=== PATIENT | female | born 1955 | race Caucasian/White ===

== ENCOUNTER 2018-08-24 07:48 | Outpatient (CLI) | payer MEDICARE, OTHER ==
--- NOTE | 2018-08-24 10:11 | CT ---
CT CHEST WITH IV CONTRAST: Date: 08-24-18 Provided Clinical History: Breast cancer, chest pain. FINDINGS: No comparisons. Increased density involves the left main coronary artery likely reflecting stent material. The heart, pericardium and great vessels appear otherwise unremarkable. There is no evidence for thoracic lymph node enlargement. The airway appears patent and is normal caliber. The lungs are free of significant opacity. No pleural fluid, pleural thickening or pneumothorax appar ent. There is a simple appearing cyst involving the inferior aspect of the right hepatic lobe. Smaller hyp odensities involve the liver and each kidney, too small to definitively characterize but likely also reflecting cysts. The visualized portions of the upper abdomen appear otherwise unremarkable. Post-operative changes are seen involving the left breast and surgical clips are seen in the left axi lla. The osseous structures demonstrate no concerning lytic or blastic lesions. IMPRESSION: No evidence for an acute process. POS: [facility]
[2018-08-24] MEDS ORDERED: ISOVUE-370 76%-LOCM 1 ML ONE (13:42)
[2018-08-24] MEDS ORDERED: Gadobenate Dimeglumine 529 MG/1 ML (20ML VIAL) ONE (13:50)
--- NOTE | 2018-08-24 15:05 | MRI ---
[facility] brain with and without contrast: (5th cranial nerve protocol) 08/24/2018 HISTORY: 63-year-old female with breast cancer presents with left facial pain and jaw pain. FINDINGS: There is no abnormal enhancement or mass involving the cisternal segments of the bilateral trigeminal nerves. Cavernous sinuses are bilaterally symmetrical and normal. Meckel's caves are normal. No evid ence of perineural spread of tumor at the pterygopalatine fossa, orbital apices, orbits, or infraorbi eduardo canals. Bilateral globes are normal. There are a few punctate scattered foci of minimal chronic i schemic white matter changes and cerebral. No other intra-axial signal abnormality, restricted diffus ion, abnormal enhancement, mass, mass effect, midline shift, or extra-axial fluid collection. A sligh tly less than 1 cm CSF signal intensity structure inferior to the left basal ganglia is a dilated Vir orourke-Jesus space, and should not be mistaken for an old lacunar infarction. Ventricles are normal in size and configuration. Clivus and the rest of the skull base demonstrate no destructive metastatic l esion. IMPRESSION: Negative
--- NOTE | 2018-08-24 15:08 | MRI ---
FCT face with and without contrast: 08/24/2018 HISTORY: 63-year-old female with breast cancer presents with facial pain. Evaluate paranasal sinuses. FINDINGS: There are signal voids throughout the maxillary, sphenoid, ethmoid, and frontal, sinuses, on all puls e sequences. (Disclaimer: Certain states of inspissated mucus within paranasal sinuses can result in complete signal voids on one or more pulse sequences, and therefore noncontrast CT of the sinuses wou ld be more definitive). There is no abnormal enhancement or mucosal thickening identified in any of t he paranasal sinuses. IMPRESSION: Negative
== END 2018-08-24 07:49 | disposition home or self-care (01) ==
LOC: BICCT 07:48
PROVIDERS: ATTEND Internal Medicine Hematology & Oncology
DX: G50.1 Atypical facial pain (principal); R68.84 Jaw pain; C50.919 Malignant neoplasm of unspecified site of unspecified female breast
CPT/HCPCS: 70543; 70553; 71260; 74160; 82565; A9577; Q9966

== ENCOUNTER 2019-03-29 09:29 | Outpatient (CLI) | payer MEDICARE ==
--- NOTE | 2019-03-29 10:25 | MMO ---
Bilateral MAMMO Bilat Screen [facility]. CLINICAL HISTORY: Patient is 63 years old and is seen for screening. The patient has no family history of breast cancer. The patient has a history of malignant (generic) in the left breast in May,. The patient has a history of left Lumpectomy in June, - malignant. VIEWS: The views performed were: bilateral craniocaudal with tomosynthesis and bilateral mediolateral oblique with tomosynthesis. FILMS COMPARED: The present examination has been compared to a prior imaging study performed at [facility] on 03/02/2018. This study has been interpreted with the assistance of computer-aided detection. MAMMOGRAM FINDINGS: There are scattered fibroglandular densities. There are stable post operative changes seen in the left breast. There are no suspicious masses, calcifications or areas of architectural distortion. There are no suspicious masses, suspicious calcifications, or new areas of architectural distortion. IMPRESSION: THERE IS NO MAMMOGRAPHIC EVIDENCE OF MALIGNANCY. A ROUTINE FOLLOW-UP MAMMOGRAM IN 1 YEAR IS RECOMMENDED. THE RESULTS OF THIS EXAM WERE SENT TO THE PATIENT. ACR BI-RADS Category 2 - Benign finding MAMMOGRAPHY NOTE: 1. A negative mammogram report should not delay a biopsy if a dominant of clinically suspicious mass is present. 2. Approximately 10% to 15% of breast cancers are not detected by mammography. 3. Adenosis and dense breasts may obscure an underlying neoplasm. Reported by: ROME DAVIS MD Electonically Signed: [id number]
== END 2019-03-29 09:30 | disposition home or self-care (01) ==
LOC: BICMAMMO 09:29 → MERGE 10:15
PROVIDERS: ATTEND Internal Medicine Hematology & Oncology
DX: Z12.31 Encounter for screening mammogram for malignant neoplasm of breast (principal); Z85.3 Personal history of malignant neoplasm of breast; Z98.890 Other specified postprocedural states
CPT/HCPCS: 77063; 77067

== ENCOUNTER 2020-03-14 10:03 | Outpatient (CLI) | payer MEDICARE ==
--- NOTE | 2020-03-14 10:54 | MMO ---
Bilateral MAMMO Bilat Screen [facility]. CLINICAL HISTORY: Patient is 64 years old and is seen for screening. The patient has no family history of breast cancer. The patient has a history of malignant (generic) in the left breast in May,. The patient has a history of left Lumpectomy in June, - malignant. VIEWS: The views performed were: bilateral craniocaudal with tomosynthesis and bilateral mediolateral oblique with tomosynthesis. FILMS COMPARED: The present examination has been compared to prior imaging studies performed at [facility] on 03/02/2018 and 03/29/2019, and at [facility] on 03/10/2017. This study has been interpreted with the assistance of computer-aided detection. MAMMOGRAM FINDINGS: There are scattered fibroglandular densities. Finding 1: There are stable post operative changes seen in the left breast. Finding 2: There are stable benign appearing calcifications seen in the left breast. There are no suspicious masses, suspicious calcifications, or new areas of architectural distortion. IMPRESSION: THERE IS NO MAMMOGRAPHIC EVIDENCE OF MALIGNANCY. A ROUTINE FOLLOW-UP MAMMOGRAM IN 1 YEAR IS RECOMMENDED. THE RESULTS OF THIS EXAM WERE SENT TO THE PATIENT. ACR BI-RADS Category 2 - Benign finding MAMMOGRAPHY NOTE: 1. A negative mammogram report should not delay a biopsy if a dominant of clinically suspicious mass is present. 2. Approximately 10% to 15% of breast cancers are not detected by mammography. 3. Adenosis and dense breasts may obscure an underlying neoplasm. Reported by: ELIS SHERIFF MD Electonically Signed: [id number]
== END 2020-03-14 10:04 | disposition home or self-care (01) ==
LOC: BICMAMMO 10:03
PROVIDERS: ATTEND Internal Medicine Hematology & Oncology
DX: Z12.31 Encounter for screening mammogram for malignant neoplasm of breast (principal); Z85.3 Personal history of malignant neoplasm of breast; Z98.890 Other specified postprocedural states
CPT/HCPCS: 77063; 77067

== ENCOUNTER 2021-03-19 11:23 | Outpatient (CLI) | payer MEDICARE | END 2021-03-19 11:24 | disposition home or self-care (01) | LOC: BICMAMMO 11:23 | PROVIDERS: ATTEND Internal Medicine Hematology & Oncology | DX: Z12.31 Encounter for screening mammogram for malignant neoplasm of breast (principal); Z85.3 Personal history of malignant neoplasm of breast; Z98.890 Other specified postprocedural states | CPT/HCPCS: 77063; 77067 ==

== ENCOUNTER 2021-05-02 09:38 | Outpatient (CLI) | payer MEDICARE | END 2021-05-02 09:39 | disposition home or self-care (01) | LOC: BICMAMMO 09:38 | PROVIDERS: ATTEND Internal Medicine Hematology & Oncology | DX: N64.89 Other specified disorders of breast (principal) | CPT/HCPCS: 76642; 77065; G0279 ==

== ENCOUNTER 2022-06-25 10:44 | Outpatient (CLI) | payer MEDICARE | END 2022-06-25 10:45 | disposition home or self-care (01) | LOC: BICMAMMO 10:44 | PROVIDERS: ATTEND Internal Medicine Hematology & Oncology | DX: Z12.31 Encounter for screening mammogram for malignant neoplasm of breast (principal); Z98.890 Other specified postprocedural states; Z85.3 Personal history of malignant neoplasm of breast | CPT/HCPCS: 77063; 77067 ==

== ENCOUNTER 2022-08-25 22:12 | Inpatient (IN) | payer MEDICARE ==
[2022-08-25] MEDS ORDERED: Heparin 25,000 units/D5W 500 ML ONE (22:37)
[2022-08-25 23:38] LABS: INR-International Normal Ratio 1.1; Prothrombin Time 14.2 sec (12.0-14.7)
[2022-08-25 23:43] LABS: PTT 125.7 sec (22.9-36.1)
[2022-08-26] MEDS ORDERED: Nitroglycerin 0.4 MG TAB (25 Tab Bottle) SL PRN (00:12)
[2022-08-26] MEDS ORDERED: Heparin 10,000 UNITS/ 10 ML VIAL SLOW IVP SCH (00:30)
[2022-08-26] MEDS ORDERED: Heparin 25,000 units/D5W 500 ML IVPB SCH (00:30)
[2022-08-26 01:24] LABS: Hemoglobin 12.4 g/dL (12.0-16.0); Platelet Count 185 10x3/uL (130-400)
[2022-08-26 01:48] LABS: Troponin I 0.032 ng/mL (< 0.028)
[2022-08-26 04:09] VITALS: BMI 28.3
[2022-08-26 05:41] LABS: Troponin I 0.033 ng/mL (< 0.028)
[2022-08-26] MEDS ORDERED: FLU VACC QS2022-23(65YR UP)/PF 240 MCG/0.7 ML SYRINGE IM ONE (09:00)
[2022-08-26] MEDS: Sertraline 100 MG TAB PO SCH (09:55)
[2022-08-26] MEDS: Losartan 25 MG TAB PO SCH (09:56)
[2022-08-26] MEDS: Aspirin 81 mg Enteric Coated Tablet PO SCH (09:56)
[2022-08-26] MEDS: Carvedilol 6.25 MG TAB PO SCH ×2 (09:56→17:50)
[2022-08-26] MEDS: Magnesium Oxide 250 MG TAB PO SCH (09:56)
[2022-08-26] MEDS ORDERED: Clopidogrel Bisulfate 300 MG TAB PO SCH (12:45)
[2022-08-26] MEDS ORDERED: Zolpidem Tartrate 5 MG TAB PO PRN (18:21)
[2022-08-26] MEDS ORDERED: Amlodipine 5 MG TAB PO SCH (21:00)
[2022-08-26] MEDS ORDERED: Gabapentin 300 MG CAP PO SCH (21:00)
[2022-08-27] MEDS ORDERED: Clopidogrel Bisulfate 75 MG TAB PO SCH (09:00)
[2022-08-27] MEDS: Aspirin 81 mg Enteric Coated Tablet PO SCH (09:23)
[2022-08-27] MEDS: Losartan 25 MG TAB PO SCH (09:23)
[2022-08-27] MEDS: Carvedilol 6.25 MG TAB PO SCH (09:23)
[2022-08-27] MEDS: Sertraline 100 MG TAB PO SCH (09:24)
[2022-08-27] MEDS: Magnesium Oxide 250 MG TAB PO SCH (09:24)
[2022-08-27 11:41] VITALS: BP 143/98; TEMP 97.3
[2022-08-28] MEDS ORDERED: Tirzepatide [Mounjaro] 2.5 MG/0.5 ML Pen.Injctr SC SCH (09:00)
== END 2022-08-27 11:45 | disposition home or self-care (01) | DRG 204 ==
LOC: ERS 22:12 → NEURO 08-26 00:21
PROVIDERS: ADMIT Family Medicine; ATTEND Family Medicine
DX: R06.02 Shortness of breath (principal); I50.32 Chronic diastolic (congestive) heart failure; T45.525A Adverse effect of antithrombotic drugs, initial encounter; I11.0 Hypertensive heart disease with heart failure; G25.81 Restless legs syndrome; I44.0 Atrioventricular block, first degree; R77.8 Other specified abnormalities of plasma proteins; Z88.5 Allergy status to narcotic agent; Z79.899 Other long term (current) drug therapy; Z79.82 Long term (current) use of aspirin; Z85.3 Personal history of malignant neoplasm of breast; Z95.5 Presence of coronary angioplasty implant and graft
CPT/HCPCS: 36415; 71045; 82553; 83880; 84484; 85014; 85018; 85049; 85610; 85730; 93005; 93306; 96365; 96366; J1644

== ENCOUNTER 2023-07-24 13:49 | Outpatient (CLI) | payer MEDICARE | END 2023-07-24 13:50 | disposition home or self-care (01) | LOC: BICMAMMO 13:49 | PROVIDERS: ATTEND Internal Medicine Hematology & Oncology | DX: Z12.31 Encounter for screening mammogram for malignant neoplasm of breast (principal); M81.0 Age-related osteoporosis without current pathological fracture; M85.89 Other specified disorders of bone density and structure, multiple sites; Z85.3 Personal history of malignant neoplasm of breast; Z98.890 Other specified postprocedural states | CPT/HCPCS: 77063; 77067; 77080 ==